=== PATIENT | female | born 1945 | race Caucasian/White ===

== ENCOUNTER 2017-11-28 10:03 | Inpatient (IN) | payer BC, OTHER ==
[2017-11-28 11:01] VITALS: BMI 22.3
--- NOTE | 2017-11-28 11:23 | HP ---
CIWA Score - CIWA Score Nausea/Vomitin-Mild Nausea/No Vomiting Muscle Tremors: 4-Moderate,w/Arms Extend Anxiety: 3 Agitation: 3 Paroxysmal Sweats: 3 Orientation: 0-Oriented Tacttile Disturbances: 0-None Auditory Disturbances: 0-None Visual Disturbances: 0-None Headache: 2-Mild CIWA-Ar Total Score: 16 Admission ROS BHS - HPI Chief Complaint: I need the help to stay sober. Allergies/Adverse Reactions: Allergies Allergy/AdvReac Type Severity Reaction Status Date / Time No Known Allergies Allergy Verified 11/28/17 11:00 History of Present Illness: pt is a 72yr old female with a history of alcohol dependence seeking detox for treatment. Exam Limitations: No Limitations - Ebola screening Have you traveled outside of the country in the last 21 days: No (N) Have you had contact with anyone from an Ebola affected area: No Have you been sick,other than usual withdrawal symptoms: No Do you have a fever: No - Review of Systems Constitutional: Chills, Loss of Appetite, Night Sweats EENT: reports: No Symptoms Reported, Tearing, Nose Congestion Respiratory: reports: No Symptoms reported Cardiac: reports: No Symptoms Reported GI: reports: Diarrhea, Nausea, Poor Fluid Intake, Indigestion : reports: No Symptoms Reported Musculoskeletal: reports: No Symptoms Reported Integumentary: reports: Flushing, Sweating Neuro: reports: Tingling, Tremors Endocrine: reports: Excessive Sweating, Flushing, Intolerance to Cold Hematology: reports: No Symptoms Reported Psychiatric: reports: Judgement Intact, Mood/Affect Appropiate, Orientated x3, Agitated, Anxious Other Systems: Reviewed and Negative Patient History - Patient Medical History Hx Anemia: Yes (B12 anemia) Hx Asthma: No Hx Chronic Obstructive Pulmonary Disease (COPD): No Hx Cancer: No Hx Cardiac Disorders: No Hx Congestive Heart Failure: No Hx Hypertension: No Hx Hypercholesterolemia: No Hx Pacemaker: No HX Cerebrovascular Accident: No Hx Seizures: No Hx Dementia: No Hx Diabetes: No Hx Gastrointestinal Disorders: No Hx Liver Disease: No Hx Genitourinary Disorders: No Hx Sexually Transmitted Disorders: No Hx Renal Disease (ESRD): No Hx Thyroid Disease: No Hx Human Immunodeficiency Virus (HIV): No (NEGATIVE HX) Hx Hepatitis C: No (negative) Hx Depression: Yes Hx Suicide Attempt: No Hx Bipolar Disorder: No Hx Schizophrenia: No - Patient Surgical History Past Surgical History: Yes Hx Neurologic Surgery: No Hx Cataract Extraction: No Hx Cardiac Surgery: No Hx Lung Surgery: No Hx Breast Surgery: No Hx Breast Biopsy: No Hx Abdominal Surgery: No Hx Appendectomy: No Hx Cholecystectomy: No Hx Genitourinary Surgery: No Hx Section: No Hx Orthopedic Surgery: No Hx Hysterectomy: No Other Surgical History: facial mole removed in 2011 and 2016 Anesthesia Reaction: No - PPD History Previous Implant?: Yes Documented Results: Negative w/o proof Implanted On Prior [facility] Admission?: Yes PPD to be Administered?: Yes - Reproductive History Patient is a Female of Child Bearing Age (11 -55 yrs old): No Patient : No - Smoking Cessation Smoking history: Current every day smoker Have you smoked in the past 12 months: Yes Aproximately how many cigarettes per day: 10 Hx Chewing Tobacco Use: No Initiated information on smoking cessation: Yes 'Breaking Loose' booklet given: 11/28/17 - Substance & Tx. History Hx Alcohol Use: Yes Hx Substance Use: No Substance Use Type: Alcohol Hx Substance Use Treatment: Yes - Substances Abused Alcohol Route: Oral Frequency: Daily Amount used: fifth of vodka Age of first use: 11 Date of Last Use: 11/28/17 Family Disease History - Family Disease History Family Disease History: Other: Father (alcoholism), Brother (alcoholism; cirrhosis), Sister (alcoholism; cirrhosis) Admission Physical Exam BHS - Vital Signs Vital Signs: Vital Signs - 24 hr 11/28/17 10:59 Temperature 96.1 F L Pulse Rate 86 Respiratory 20 Rate Blood Pressure 156/91 - Physical General Appearance: Yes: Appropriately Dressed, Moderate Distress, Thin, Tremorous, Irritable, Sweating, Anxious HEENTM: Yes: Normal Voice, Nasal Congestion, Rhinorrhea Respiratory: Yes: Lungs Clear, Normal Breath Sounds, No Respiratory Distress Neck: Yes: Within Normal Limits Breast: Yes: Within Normal Limits Cardiology: Yes: Regular Rhythm, Regular Rate, S1, S2 Abdominal: Yes: Normal Bowel Sounds, Non Tender, Flat Genitourinary: Yes: Within Normal Limits Back: Yes: Normal Inspection Musculoskeletal: Yes: full range of Motion, Gait Steady Extremities: Yes: Normal Capillary Refill, Normal Inspection, Non-Tender, Tremors Neurological: Yes: Fully Oriented, Alert, Normal Response Integumentary: Yes: Normal Color Lymphatic: Yes: Within Normal Limits - Diagnostic (1) Alcohol dependence with uncomplicated withdrawal Current Visit: Yes Status: Chronic (2) Nicotine dependence Current Visit: No Status: Chronic Qualifiers: Nicotine product type: cigarettes Substance use status: uncomplicated Qualified Code(s): F17.210 - Nicotine dependence, cigarettes, uncomplicated Cleared for Admission [facility] - Detox or Rehab [facility] Level of Care: Medically Managed Detox Regimen/Protocol: Librium S Breath Alcohol Content Breath Alcohol Content: 0 Urine Pregancy Test - Result Urine Test Results: Negative- NO Line Present Urine Drug Screen - Results Drug Screen Negative: Yes
[2017-11-28] MEDS ORDERED: IBUPROFEN 400 MG TABLET (FP) PO PRN (11:37)
[2017-11-28] MEDS ORDERED: guaiFENesin/D-METHORPHAN HB 10 ML UNIT-DOSE CUPS PO PRN (11:37)
[2017-11-28] MEDS ORDERED: MAGNESIUM HYDROX 2400MG/30ML ORAL SUSPENSION 30 ML CUP PO PRN (11:37)
[2017-11-28] MEDS ORDERED: MAG HYDROX/AL HYDROX/SIMETH 30 ML UNIT-DOSE CUP PO PRN (11:37)
[2017-11-28] MEDS ORDERED: chlordiazePOXIDE HCL 25 MG CAPSULE PO PRN (11:37)
[2017-11-28] MEDS ORDERED: ACETAMINOPHEN 325 MG TABLET (FP) PO PRN (11:37)
[2017-11-28] MEDS ORDERED: MAGNESIUM CITRATE 300 ML BOTTLE PO PRN (11:37)
[2017-11-28] MEDS ORDERED: LOPERAMIDE HCL 2 MG CAPSULE PO PRN (11:37)
[2017-11-28] MEDS ORDERED: MENTHOL/PHENOL 1 EACH UD MM PRN (11:37)
[2017-11-28] MEDS ORDERED: P-EPHED 60MG/TRIPROLIDI 2.5MG TABLET PO PRN (11:37)
[2017-11-28] MEDS ORDERED: chlordiazePOXIDE HCL 25 MG CAPSULE PO ONE (12:08)
[2017-11-28] MEDS ORDERED: NICOTINE POLACRILEX 4 MG GUM BUC PRN (13:56)
[2017-11-28] MEDS: NICOTINE 21 MG/24 HOURS TOPICAL PATCH TD SCH (14:01)
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
[2017-11-28 17:04] LABS: URINE APPEARANCE SLCLOUDY; URINE BILIRUBIN NEGATIVE (NEGATIVE); URINE BLOOD 1+ (NEGATIVE); URINE COLOR YELLOW; URINE GLUCOSE (UA) NEGATIVE (NEGATIVE); URINE KETONE 1+ (NEGATIVE); URINE NITRITE NEGATIVE (NEGATIVE); URINE PROTEIN NEGATIVE (NEGATIVE); URINE UROBILINOGEN NEGATIVE mg/dL (0.2-1.0)
[2017-11-28 17:05] LABS: URINE LEUK ESTERASE 1+ (NEGATIVE)
[2017-11-28 17:07] LABS: EPI CELLS MODERATE /HPF (FEW); URINE BACTERIA RARE /hpf (NONE SEEN); URINE MUCUS RARE
[2017-11-28] MEDS: chlordiazePOXIDE HCL 25 MG CAPSULE PO SCH ×2 (17:07→22:09)
--- NOTE | 2017-11-28 17:32 | EKG ---
Test Reason : Blood Pressure : / mmHG Vent. Rate : 077 BPM Atrial Rate : 077 BPM P-R Int : 160 ms QRS Dur : 080 ms QT Int : 392 ms P-R-T Axes : 070 094 074 degrees QTc Int : 443 ms NORMAL SINUS RHYTHM RIGHTWARD AXIS NONSPECIFIC ST ABNORMALITY ABNORMAL ECG NO PREVIOUS ECGS AVAILABLE Confirmed by Nash Escamilla ([id number]) on 11/28/2017 5:31:48 PM Referred By: Confirmed By:Nash Escamilla
[2017-11-28] MEDS: THIAMINE HCL 100 MG TABLET (FP) PO SCH (22:09)
[2017-11-28] MEDS: hydrOXYzine PAMOATE 50 MG CAPSULE (FP) PO PRN (22:09)
[2017-11-29] MEDS: chlordiazePOXIDE HCL 25 MG CAPSULE PO SCH ×4 (05:29→22:12)
--- NOTE | 2017-11-29 09:21 | PN ---
S CIWA - CIWA Score Nausea/Vomitin-Mild Nausea/No Vomiting Muscle Tremors: 3 Anxiety: 3 Agitation: 3 Paroxysmal Sweats: 1-Minimal Palms Moist Orientation: 0-Oriented Tacttile Disturbances: 0-None Auditory Disturbances: 0-None Visual Disturbances: 0-None Headache: 0-None Present CIWA-Ar Total Score: 11 BHS Progress Note (SOAP) Subjective: sweat tremor irritable anxiety alert Objective: 11/29/17 09:22 Vital Signs Temperature 96.1 F L 11/29/17 06:24 Pulse Rate 68 11/29/17 06:24 Respiratory Rate 16 11/29/17 06:24 Blood Pressure 123/69 11/29/17 06:24 O2 Sat by Pulse Oximetry (%) Laboratory Last Values Urine Color Yellow 11/28/17 15:00 Urine Appearance Slcloudy 11/28/17 15:00 Urine pH 5.0 (5.0-8.0) 11/28/17 15:00 Ur Specific [place] 1.019 (1.001-1.035) 11/28/17 15:00 Urine Protein Negative (NEGATIVE) 11/28/17 15:00 Urine Glucose (UA) Negative (NEGATIVE) 11/28/17 15:00 Urine Ketones 1+ (NEGATIVE) H 11/28/17 15:00 Urine Blood 1+ (NEGATIVE) H 11/28/17 15:00 Urine Nitrite Negative (NEGATIVE) 11/28/17 15:00 Urine Bilirubin Negative (NEGATIVE) 11/28/17 15:00 Urine Urobilinogen Negative mg/dL (0.2-1.0) 11/28/17 15:00 Ur Leukocyte Esterase 1+ (NEGATIVE) H 11/28/17 15:00 Urine WBC (Auto) 2 /hpf (3-5) 11/28/17 15:00 Urine RBC (Auto) 3 /hpf (0-3) 11/28/17 15:00 Ur Epithelial Cells Moderate /HPF (FEW) 11/28/17 15:00 Urine Bacteria Rare /hpf (NONE SEEN) 11/28/17 15:00 Urine Mucus Rare 11/28/17 15:00 lab noted Assessment: 11/29/17 09:22 withdrawal sx Plan: continue detox
[2017-11-29] MEDS ORDERED: NICOTINE 21 MG/24 HOURS TOPICAL PATCH TD SCH (10:00)
[2017-11-29 10:27] LABS: HEMATOCRIT 35.7 % (32.4-45.2); HEMOGLOBIN 11.7 GM/dL (10.7-15.3); MCH 33.1 pg (25.7-33.7); MCHC 32.9 g/dl (32.0-36.0); MEAN CELL VOLUME 100.7 fl (80-96); MEAN PLT VOLUME 9.7 fl (7.5-11.1); PLATELET COUNT 222 K/MM3 (134-434); RBC 3.55 M/mm3 (3.60-5.2)
[2017-11-29] MEDS: PRENATAL VITAMINS W/ FOLIC ACID TABLET (FP) PO SCH (10:34)
[2017-11-29] MEDS: NICOTINE 21 MG/24 HOURS TOPICAL PATCH TD SCH (10:34)
[2017-11-29 10:35] LABS: ANION GAP 11 (8-16); BLOOD UREA NITROGEN 13 mg/dL (7-18); CALCIUM 8.6 mg/dL (8.5-10.1); CHLORIDE 100 mmol/L (98-107); CO2 27 mmol/L (21-32); GLUCOSE,RANDOM 150 mg/dL (74-106); POTASSIUM 3.8 mmol/L (3.5-5.1); SODIUM 138 mmol/L (136-145)
[2017-11-29 10:39] LABS: ALK PHOS 105 U/L (45-117); BILIRUBIN,TOTAL 0.8 mg/dL (0.2-1.0); CREATININE 0.6 mg/dL (0.55-1.02); SGOT/AST 39 U/L (15-37); SGPT/ALT 29 U/L (12-78); TOT PROT 6.7 g/dl (6.4-8.2)
[2017-11-29] MEDS: THIAMINE HCL 100 MG TABLET (FP) PO SCH (22:12)
[2017-11-29] MEDS: hydrOXYzine PAMOATE 50 MG CAPSULE (FP) PO PRN (22:12)
[2017-11-30] MEDS: chlordiazePOXIDE HCL 25 MG CAPSULE PO SCH (05:22)
[2017-11-30] MEDS ORDERED: chlordiazePOXIDE 5 MG CAPSULE PO SCH ×2 (09:15→17:00)
--- NOTE | 2017-11-30 09:15 | PN ---
[facility] CIWA - CIWA Score Nausea/Vomitin-No Nausea/No Vomiting Muscle Tremors: 2 Anxiety: 2 Agitation: 2 Paroxysmal Sweats: 1-Minimal Palms Moist Orientation: 0-Oriented Tacttile Disturbances: 0-None Auditory Disturbances: 0-None Visual Disturbances: 0-None Headache: 0-None Present CIWA-Ar Total Score: 7 S Progress Note (SOAP) Subjective: mild alcohol withdrawal sx mild tremor calm alert oriented patient wants to return to the community follow up with support group Objective: 11/30/17 09:14 Vital Signs Temperature 98 F 11/30/17 06:22 Pulse Rate 86 11/30/17 06:22 Respiratory Rate 18 11/30/17 06:22 Blood Pressure 150/82 11/30/17 06:22 O2 Sat by Pulse Oximetry (%) Laboratory Last Values WBC 11.0 K/mm3 (4.0-10.0) H D 11/29/17 06:00 RBC 3.55 M/mm3 (3.60-5.2) L 11/29/17 06:00 Hgb 11.7 GM/dL (10.7-15.3) D 11/29/17 06:00 Hct 35.7 % (32.4-45.2) D 11/29/17 06:00 MCV 100.7 fl (80-96) H 11/29/17 06:00 MCH 33.1 pg (25.7-33.7) 11/29/17 06:00 MCHC 32.9 g/dl (32.0-36.0) 11/29/17 06:00 RDW 15.0 % (11.6-15.6) 11/29/17 06:00 Plt Count 222 K/MM3 (134-434) 11/29/17 06:00 MPV 9.7 fl (7.5-11.1) 11/29/17 06:00 Sodium 138 mmol/L (136-145) 11/29/17 06:00 Potassium 3.8 mmol/L (3.5-5.1) 11/29/17 06:00 Chloride 100 mmol/L (98-107) 11/29/17 06:00 Carbon Dioxide 27 mmol/L (21-32) 11/29/17 06:00 Anion Gap 11 (8-16) 11/29/17 06:00 BUN 13 mg/dL (7-18) 11/29/17 06:00 Creatinine 0.6 mg/dL (0.55-1.02) 11/29/17 06:00 Creat Clearance w eGFR > 60 (>60) 11/29/17 06:00 Random Glucose 150 mg/dL (74-106) H 11/29/17 06:00 Calcium 8.6 mg/dL (8.5-10.1) 11/29/17 06:00 Total Bilirubin 0.8 mg/dL (0.2-1.0) D 11/29/17 06:00 AST 39 U/L (15-37) H 11/29/17 06:00 ALT 29 U/L (12-78) 11/29/17 06:00 Alkaline Phosphatase 105 U/L (45-117) 11/29/17 06:00 Total Protein 6.7 g/dl (6.4-8.2) 11/29/17 06:00 Albumin 4.0 g/dl (3.4-5.0) 11/29/17 06:00 Urine Color Yellow 11/28/17 15:00 Urine Appearance Slcloudy 11/28/17 15:00 Urine pH 5.0 (5.0-8.0) 11/28/17 15:00 Ur Specific [place] 1.019 (1.001-1.035) 11/28/17 15:00 Urine Protein Negative (NEGATIVE) 11/28/17 15:00 Urine Glucose (UA) Negative (NEGATIVE) 11/28/17 15:00 Urine Ketones 1+ (NEGATIVE) H 11/28/17 15:00 Urine Blood 1+ (NEGATIVE) H 11/28/17 15:00 Urine Nitrite Negative (NEGATIVE) 11/28/17 15:00 Urine Bilirubin Negative (NEGATIVE) 11/28/17 15:00 Urine Urobilinogen Negative mg/dL (0.2-1.0) 11/28/17 15:00 Ur Leukocyte Esterase 1+ (NEGATIVE) H 11/28/17 15:00 Urine WBC (Auto) 2 /hpf (3-5) 11/28/17 15:00 Urine RBC (Auto) 3 /hpf (0-3) 11/28/17 15:00 Ur Epithelial Cells Moderate /HPF (FEW) 11/28/17 15:00 Urine Bacteria Rare /hpf (NONE SEEN) 11/28/17 15:00 Urine Mucus Rare 11/28/17 15:00 RPR Titer Nonreactive (NONREACTIVE) 11/29/17 06:00 lab noted Assessment: 11/30/17 09:15 mild withdrawal sx possible return to community 12/01/17 Plan: medically supervised detox continue monitor overnight re evaluate 12/01/17 am for possible discharge
[2017-11-30] MEDS: PRENATAL VITAMINS W/ FOLIC ACID TABLET (FP) PO SCH (10:35)
[2017-11-30] MEDS: NICOTINE 21 MG/24 HOURS TOPICAL PATCH TD SCH (10:35)
[2017-11-30] MEDS: chlordiazePOXIDE 5 MG CAPSULE PO SCH ×3 (10:54→22:05)
--- NOTE | 2017-11-30 12:16 | EKG ---
Test Reason : Blood Pressure : / mmHG Vent. Rate : 080 BPM Atrial Rate : 080 BPM P-R Int : 160 ms QRS Dur : 080 ms QT Int : 382 ms P-R-T Axes : 034 095 073 degrees QTc Int : 440 ms NORMAL SINUS RHYTHM RIGHTWARD AXIS LOW VOLTAGE QRS BORDERLINE ECG WHEN COMPARED WITH ECG OF 28-NOV-2017 13:04, NO SIGNIFICANT CHANGE WAS FOUND Confirmed by EJ SARGENT MD ([id number]) on 11/30/2017 12:16:00 PM Referred By: Confirmed By:EJ SARGENT MD
[2017-11-30] MEDS: THIAMINE HCL 100 MG TABLET (FP) PO SCH (22:05)
[2017-11-30] MEDS: hydrOXYzine PAMOATE 50 MG CAPSULE (FP) PO PRN (22:05)
[2017-12-01] MEDS ORDERED: chlordiazePOXIDE HCL 10 MG CAPSULE PO SCH ×3 (05:00→17:00)
[2017-12-01 06:13] VITALS: BP 125/69; PULSE 76; TEMP 98.1
--- NOTE | 2017-12-01 09:00 | DS ---
[facility] Detox Discharge Summary Admission Date: 11/28/17 Discharge Date: 12/01/17 - History Present History: Alcohol Dependence - Physical Exam Results Vital Signs: Vital Signs Temperature 98.1 F 12/01/17 06:13 Pulse Rate 76 12/01/17 06:13 Respiratory Rate 18 12/01/17 06:13 Blood Pressure 125/69 12/01/17 06:13 O2 Sat by Pulse Oximetry (%) - Treatment Hospital Course: Detox Protocol Followed, Detoxed Safely, Responded well, Discharged Condition Good, Rehab Referral Accepted - Medication Discharge Medications: Ambulatory Orders NK [No Known Home Medication] 11/28/17 - Diagnosis (1) Alcohol dependence with uncomplicated withdrawal Current Visit: Yes Status: Chronic (2) Nicotine dependence Current Visit: Yes Status: Chronic Qualifiers: Nicotine product type: cigarettes Substance use status: uncomplicated Qualified Code(s): F17.210 - Nicotine dependence, cigarettes, uncomplicated - AMA Did Patient Leave Against Medical Advice: No
== END 2017-12-01 09:27 | disposition home or self-care (01) | DRG 951 ==
LOC: YASAS 10:03 → Y6N 11:50
PROVIDERS: ADMIT Internal Medicine; ATTEND Internal Medicine
PROC: HZ2ZZZZ Detoxification Services for Substance Abuse Treatment (ICD-10-PCS; principal; 2017-11-28)
DX: F17.210 Nicotine dependence, cigarettes, uncomplicated (principal); F33.9 Major depressive disorder, recurrent, unspecified; D51.9 Vitamin B12 deficiency anemia, unspecified
CPT/HCPCS: 36415; 80053; 81003; 81015; 85027; 86593; 93005; 93010